=== PATIENT | female | born 1990 | race Caucasian/White ===

== ENCOUNTER 2017-12-28 19:24 | Emergency (ER) | payer OTHER | END 2017-12-28 21:16 | disposition left against medical advice (07) | LOC: ER 21:16 | DX: S99.921A Unspecified injury of right foot, initial encounter (principal); Z53.21 Procedure and treatment not carried out due to patient leaving prior to being seen by health care provider; X58.XXXA Exposure to other specified factors, initial encounter; Y93.89 Activity, other specified; Y99.8 Other external cause status; Y92.89 Other specified places as the place of occurrence of the external cause ==